=== PATIENT | female | born 1980 | race Caucasian/White ===

== ENCOUNTER 2017-11-15 15:50 | Emergency (ER) | payer OTHER ==
[~2017-11-15] VITALS: Ht 175.3 cm; Wt 61.5 kg
[~2017-11-15 15:50] MED LIST: CLEOCIN300 MG PO; Methadone HCl PO; Motrin PO; NAPROSYN500 MG PO; Percocet 5/325,Endoc PO; TORADOL10 MG PO; TRAMADOL HCL50 MG PO; ULTRAM50 MG PO
[2017-11-15] MEDS ORDERED: BACTROBAN OINTM22 GM TP (16:03)
[2017-11-15] MEDS ORDERED: MOTRIN600 MG PO (16:03)
[2017-11-15] MEDS ORDERED: KEFLEX500 MG PO (16:03)
[2017-11-15 16:41] VITALS: BP 105/77
== END 2017-11-15 16:42 | disposition home or self-care (01) ==
LOC: EME 15:50
DX: L01.00 Impetigo, unspecified (principal); Z88.8 Allergy status to other drugs, medicaments and biological substances
CPT/HCPCS: 99281; 99284